=== PATIENT | male | born 1995 | race Caucasian/White ===

== ENCOUNTER 2019-07-20 16:40 | Emergency (ER) | payer OTHER ==
[~2019-07-20] VITALS: Ht 182.9 cm; Wt 61.4 kg
[2019-07-20] MEDS ORDERED: IBUP200C25 PO (16:52)
[2019-07-20 20:44] VITALS: BP 129/60
== END 2019-07-20 20:46 | disposition home or self-care (01) ==
LOC: M ED 16:40
DX: F43.0 Acute stress reaction (principal)

== ENCOUNTER 2020-02-28 15:28 | Emergency (ER) | payer OTHER ==
[~2020-02-28] VITALS: Ht 180.3 cm; Wt 62.8 kg
[2020-02-28 15:28] VITALS: BP 114/72
[~2020-02-28 15:28] MED LIST: IBUP200C25 PO
[2020-02-28] MEDS ORDERED: IBUPROFEN 600MG TAB PO ONE (17:45)
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
== END 2020-02-28 18:49 | disposition home or self-care (01) ==
LOC: M ED 15:28
DX: S13.4XXA Sprain of ligaments of cervical spine, initial encounter (principal); V49.40XA Driver injured in collision with unspecified motor vehicles in traffic accident, initial encounter; Y92.9 Unspecified place or not applicable; Y93.9 Activity, unspecified; Y99.9 Unspecified external cause status